=== PATIENT | male | born 1960 | race Two or more races ===

== ENCOUNTER 2024-06-02 16:46 | Emergency (ER) | payer OTHER ==
[~2024-06-02] VITALS: Ht 185.4 cm; Wt 94.3 kg
[2024-06-02] MEDS ORDERED: ASPIRIN 325 MG TABLET.EC PO STA (17:30)
[2024-06-02] MEDS ORDERED: ASPIRIN 325 MG TABLET.EC PO ONE (17:51)
[2024-06-02 18:09] LABS: HEMATOCRIT 41.2 % (39.0-48.0); HEMOGLOBIN 13.5 g/dL (13-16.00); MEAN CELL VOLUME 83.7 fL (80.0-100.00); MEAN CORPUSCULAR HEMOGLOBIN 27.4 pg (27.00-32.0); MEAN CORPUSCULAR HGB CONC 32.8 g/dl (32.0-36.0); PLATELET COUNT 473 K/uL (150-450); RED BLOOD COUNT 4.92 M/uL (4.00-6.00)
[2024-06-02 18:36] LABS: PARTIAL THROMBOPLASTIN TIME 26.9 SECONDS (22.0-34.0); PROTHROMBIN TIME 10.9 SECONDS (9.0-11.5)
[2024-06-02 18:42] LABS: CALCIUM 9.4 mg/dL (8.5-10.1); CREATININE SERUM 1.5 mg/dL (0.70-1.30); GFR 46.82; POTASSIUM 5.06 mEq/L (3.5-5.1)
[2024-06-02 20:08] LABS: URINE APPEARANCE Clear; URINE BILIRRUBIN Negative (NEGATIVE); URINE BLOOD Negative; URINE COLOR Dark Yellow; URINE GLUCOSE Negative (NEGATIVE); URINE KETONE Negative (NEGATIVE); URINE LEUKOCYTE Negative; URINE NITRATE Negative; URINE PROTEIN Negative (NEGATIVE); URINE UROBILINOGEN 0.2 E.U./dl
[2024-06-02 20:12] LABS: URINE BACTERIA 92.9 uL (0.0-1933); URINE WBC 2.6 uL (0.0-23.2)
[2024-06-02 20:53] LABS: URINE CAST 0.44 uL (0.0-1.40); URINE EPITHELIAL CELLS 1.2 uL (0.0-38.8)
[2024-06-03] MEDS ORDERED: 0.9 % SODIUM CHLORIDE 1,000 ML IV SCH
[2024-06-03 02:43] LABS: ABG PO2 120.9 mmHg (80-100); ABG pCO2 31.7 mmHg (35-45); BASE EXCESS -1.5 mmol/l; BICARBONATE 21.5 mmol/l (23-25); SaO2 98.8 %; Tco2 22.5 mmol/l; allen test SATISFACTORY; o2 28 %; puncture site RADIAL LEFT
[2024-06-03 05:47] LABS: ALBUMIN 2.5 gm/dL (3.4-5.0); BILIRUBIN TOTAL 0.51 mg/dL (0.3-1.2); CREATININE SERUM 1.06 mg/dL (0.70-1.30); GFR 69.9; GLOBULINA 4.5 G/DL (2.4-3.5); POTASSIUM 5.52 mEq/L (3.5-5.1)
[2024-06-03] MEDS ORDERED: MACROBID 100 M100 MG PO (08:09)
== END 2024-06-03 08:29 ==
LOC: ER 16:48
PROVIDERS: Emergency Medicine; General Practice
DX: N39.0 Urinary tract infection, site not specified (principal); Z88.1 Allergy status to other antibiotic agents